=== PATIENT | male | born 1955 | race Caucasian/White ===

== ENCOUNTER 2017-09-11 11:32 | Emergency (ER) | payer OTHER ==
[2017-09-11] MEDS: ONDANSETRON (ODT) 4 MG TAB ODT (12:04)
[2017-09-11 12:38] LABS: ADD MAN DIFF? NO
[2017-09-11 12:44] LABS: WHITE BLOOD COUNT 9.4 10^3/ul (4.8-10.8)
[2017-09-11 12:44] LABS: BASOPHIL # 0.1 10^3/ul (0.0-0.1); BASOPHILS % 1.4 % (0.0-2.0); EOSINOPHILS # 0.4 10^3/ul (0.0-0.5); EOSINOPHILS % 3.8 % (0.0-7.0); HEMATOCRIT 41.4 % (42.0-52.0); HEMOGLOBIN 14.1 g/dl (14.0-18.0); LYMPHOCYTES # 2.8 10^3/ul (0.8-2.9); LYMPHOCYTES % 29.4 % (15.0-51.0); MEAN CORPUSCULAR HEMOGLOBIN 30.2 pg (29.0-33.0); MEAN CORPUSCULAR HGB CONC 34.1 g/dl (32.0-37.0); MEAN CORPUSCULAR VOLUME 88.7 fl (82.0-101.0); MEAN PLATELET VOLUME 9.4 fl (7.4-10.4); MONOCYTE # 0.6 10^3/ul (0.3-0.9); MONOCYTES % 5.9 % (0.0-11.0); NEUTROPHIL # 5.6 10^3/ul (1.6-7.5); NEUTROPHILS % 59.3 % (39.0-77.0); PLATELET COUNT 328 10^3/UL (140-415); RED BLOOD COUNT 4.67 10^6/ul (4.70-6.10); RED CELL DISTRIBUTION WIDTH 12.9 % (11.5-14.5)
[2017-09-11 12:49] LABS: ADD UMIC NO; UR ASCORBIC ACID 40 mg/dL (NEGATIVE); UR BILIRUBIN (Dip) NEGATIVE (NEGATIVE); UR BLOOD (Dip) NEGATIVE (NEGATIVE); UR CLARITY CLEAR (CLEAR); UR COLOR YELLOW (YELLOW); UR GLUCOSE (Dip) NEGATIVE (NEGATIVE); UR KETONES (Dip) NEGATIVE (NEGATIVE); UR LEUKOCYTE ESTERASE (Dip) NEGATIVE Leu/ul (NEGATIVE); UR NITRITE (Dip) NEGATIVE (NEGATIVE); UR SPECIFIC GRAVITY (Dip) 1.015 (1.003-1.030); UR TOTAL PROTEIN (Dip) NEGATIVE (NEGATIVE); UR UROBILINOGEN (Dip) NEGATIVE (NEGATIVE)
[2017-09-11 13:03] LABS: ALANINE AMINOTRANSFERASE 50 IU/L (13-69); ALBUMIN 4.3 g/dl (3.3-4.9); ALBUMIN/GLOBULIN RATIO 1.53; ALKALINE PHOSPHATASE 71 IU/L (42-121); ANION GAP 19 (8-16); ASPARTATE AMINO TRANSFERASE 21 IU/L (15-46); BILIRUBIN,INDIRECT 0.5 mg/dl (0-1.1); BILIRUBIN,TOTAL 0.5 mg/dl (0.2-1.3); BLOOD UREA NITROGEN 11 mg/dl (7-20); CALCIUM 9.2 mg/dl (8.4-10.2); CARBON DIOXIDE 26 mmol/L (21-31); CHLORIDE 98 mmol/L (97-110); GLUCOSE 95 mg/dl (70-220); POTASSIUM 4.6 mmol/L (3.5-5.1); SODIUM 138 mmol/L (135-144); TOTAL PROTEIN 7.1 g/dl (6.1-8.1)
== END 2017-09-11 14:06 | disposition home or self-care (01) ==
LOC: FTE 11:32
DX: R42 Dizziness and giddiness (principal); H66.001 Acute suppurative otitis media without spontaneous rupture of ear drum, right ear
CPT/HCPCS: 70450; 80053; 81003; 85025; 93005; 99285-25

== ENCOUNTER 2017-09-19 11:11 | Observation (INO) | payer OTHER ==
[2017-09-19 16:18] LABS: ADD MAN DIFF? NO
[2017-09-19 16:22] LABS: BASOPHIL # 0.1 10^3/ul (0.0-0.1); BASOPHILS % 1.2 % (0.0-2.0); EOSINOPHILS # 0.4 10^3/ul (0.0-0.5); EOSINOPHILS % 4.4 % (0.0-7.0); HEMATOCRIT 43.9 % (42.0-52.0); HEMOGLOBIN 14.9 g/dl (14.0-18.0); LYMPHOCYTES # 2.9 10^3/ul (0.8-2.9); LYMPHOCYTES % 33.2 % (15.0-51.0); MEAN CORPUSCULAR HEMOGLOBIN 29.8 pg (29.0-33.0); MEAN CORPUSCULAR HGB CONC 33.9 g/dl (32.0-37.0); MEAN CORPUSCULAR VOLUME 87.8 fl (82.0-101.0); MEAN PLATELET VOLUME 9.5 fl (7.4-10.4); MONOCYTE # 0.5 10^3/ul (0.3-0.9); MONOCYTES % 5.9 % (0.0-11.0); NEUTROPHIL # 4.8 10^3/ul (1.6-7.5); NEUTROPHILS % 55.1 % (39.0-77.0); PLATELET COUNT 363 10^3/UL (140-415); RED CELL DISTRIBUTION WIDTH 12.9 % (11.5-14.5)
[2017-09-19 16:22] LABS: WHITE BLOOD COUNT 8.7 10^3/ul (4.8-10.8)
[2017-09-19 16:41] LABS: INR 0.99; PROTIME 13.2 Sec (11.9-14.9)
[2017-09-19 16:42] LABS: PARTIAL THROMBOPLASTIN TIME 34.3 Sec (25.0-35.0)
[2017-09-19 16:43] LABS: ANION GAP 18 (8-16); BLOOD UREA NITROGEN 8 mg/dl (7-20); CALCIUM 9.2 mg/dl (8.4-10.2); CARBON DIOXIDE 27 mmol/L (21-31); CHLORIDE 99 mmol/L (97-110); CREATININE 0.77 mg/dl (0.61-1.24); GLUCOSE 141 mg/dl (70-220); POTASSIUM 3.8 mmol/L (3.5-5.1); SODIUM 140 mmol/L (135-144)
[2017-09-19 17:04] LABS: TROPONIN-I < 0.012 ng/ml (0.00-0.12)
[2017-09-19 17:12] LABS: HEMOGLOBIN A1C 5.4 % (0-5.9)
[2017-09-19] MEDS ORDERED: ONDANSETRON 4 MG INJ IV (17:30)
[2017-09-19] MEDS: ASPIRIN 81 MG TAB PO (17:36)
[2017-09-19] MEDS ORDERED: DOCUSATE SODIUM 100 MG CAP PO (19:00)
[2017-09-19] MEDS ORDERED: MAGNESIUM HYDROXIDE 30ML CUP PO (19:00)
[2017-09-19] MEDS ORDERED: NACL 0.9% 3 ML SYG IV (19:00)
[2017-09-19] MEDS ORDERED: traZODone 50 MG TAB PO (19:00)
[2017-09-19] MEDS ORDERED: hydrALAzine 20 MG INJ IV (21:30)
[2017-09-20] MEDS: ONDANSETRON 4 MG INJ IV (04:00)
[2017-09-20 09:30] LABS: CHOLESTEROL 147 mg/dl (100-200)
[2017-09-20 09:30] LABS: CHOL/HDL RATIO 3.5 RATIO; HDL CHOLESTEROL 41 mg/dl (30-78); LDL CHOLESTEROL,CALCULATED 90 mg/dl; TRIGLYCERIDES 80 mg/dl (0-149)
[2017-09-20] MEDS: ASPIRIN 81 MG TAB PO (09:34)
[2017-09-20] MEDS: ACETAMINOPHEN 325 MG TAB PO ×2 (09:35→22:50)
[2017-09-20 10:32] LABS: HEMOGLOBIN A1C 5.3 % (0-5.9)
[2017-09-20] MEDS: LORAZEPAM 2 MG INJ IV (14:02)
[2017-09-20] MEDS: LISINOPRIL 5 MG TAB PO (14:02)
[2017-09-21] MEDS: LISINOPRIL 5 MG TAB PO (08:43)
[2017-09-21] MEDS: ASPIRIN 81 MG TAB PO (08:43)
== END 2017-09-21 15:31 | disposition home or self-care (01) ==
LOC: MS4 09-20 15:21 → E/R 11:11 → MS4 17:12
DX: H53.9 Unspecified visual disturbance (principal); R03.0 Elevated blood-pressure reading, without diagnosis of hypertension; M54.5 Low back pain; G93.89 Other specified disorders of brain
CPT/HCPCS: 36415; 70450; 70544; 70549; 70553; 71045; 80048; 80061; 83036; 84443; 84484; 85025; 85610; 85730; 93005; 97161; 99285-25; G0378

== ENCOUNTER 2017-09-26 18:36 | Emergency (ER) | payer SELFPAY, OTHER | END 2017-09-26 21:43 | disposition left against medical advice (07) | LOC: FTE 18:36 | DX: Z53.21 Procedure and treatment not carried out due to patient leaving prior to being seen by health care provider (principal) ==